=== PATIENT | female | born 1955 | race Caucasian/White ===

== ENCOUNTER 2019-03-28 02:27 | Emergency (ER) | payer OTHER ==
[~2019-03-28] VITALS: Ht 167.6 cm; Wt 68.0 kg
[2019-03-28] MEDS ORDERED: HYDROMORPHONE 1 MG/1 ML DISP.SYRIN IM ONE (02:30)
[2019-03-28] MEDS ORDERED: NEOMY/BACITRA/POLYMYXIN B OINT UD PACKET TP ONE ×2 (02:30→02:43)
[2019-03-28] MEDS ORDERED: ONDANSETRON 4 MG/2 ML VIAL IM ONE (02:30)
[2019-03-28] MEDS ORDERED: ONDANSETRON 4 MG/2 ML VIAL ONE (02:37)
[2019-03-28] MEDS ORDERED: HYDROMORPHONE 1 MG/1 ML DISP.SYRIN ONE (02:37)
--- NOTE | 2019-03-28 02:40 | NUR ---
Patient BIB [id number] for c/o fall and injuring her right knee and suffers from lacerations on her upper right arm. Patient reaks of alcohol smell, states she had a few shots and a few beers about 4 hours ago. Respiratory even and unlabored, no cough no sob. All pulses palpable. Denies any n/v/d. Pain level 10/10 in her right lower extremity non-radiating. Ice pack applied to right knee and elevated to decrease swelling.
[2019-03-28] MEDS ORDERED: MORPHINE SULFATE 4 MG/1 ML DISP.SYRIN IV ONE (03:00)
[2019-03-28] MEDS ORDERED: MORPHINE SULFATE 4 MG/1 ML DISP.SYRIN ONE (03:07)
--- NOTE | 2019-03-28 04:11 | NUR ---
Pt went down to radiology dept for CT scan. NAD noted.
--- NOTE | 2019-03-28 04:27 | NUR ---
Pt back in room 02A. Pending results.
--- NOTE | 2019-03-28 05:27 | NUR ---
Patient discharged to home in stable conditon. Written and verbal after care instructions given. Patient verbalizes understanding of instructions. Pt has right knee immobilizer in place. Pt instructed on use of crutches with return demonstration. Pt was able to ambulate with use of crutches. Pt left ER with , who will take pt home. Vital signs stable. No acute distress noted.
--- NOTE | 2019-03-28 05:27 | NUR ---
IV removed. Catheter intact and site benign. Pressure and 4x4 gauze applied to site. No bleeding noted.
[2019-03-28 05:31] VITALS: BP 118/69
== END 2019-03-28 05:32 | disposition home or self-care (01) ==
LOC: ER 02:31
DX: S82.001A Unspecified fracture of right patella, initial encounter for closed fracture (principal); S40.811A Abrasion of right upper arm, initial encounter; Z88.5 Allergy status to narcotic agent; W18.39XA Other fall on same level, initial encounter; Y93.89 Activity, other specified; Y92.89 Other specified places as the place of occurrence of the external cause; Y99.8 Other external cause status
CPT/HCPCS: 29505; 70450; 72125; 73551; 73562; 96372 ×2; 96374; 99284; J1170; J2270; J2405; A4663